=== PATIENT | female | born 1970 | race Caucasian/White ===

== ENCOUNTER 2019-07-29 12:20 | Emergency (ER) | payer MEDICAID ==
[~2019-07-29] VITALS: Ht 170.2 cm; Wt 99.8 kg
[2019-07-29 12:30] VITALS: BP 137/77
== END 2019-07-29 14:15 | disposition home or self-care (01) ==
LOC: ER 12:38
DX: F41.9 Anxiety disorder, unspecified (principal); I10 Essential (primary) hypertension; Z76.0 Encounter for issue of repeat prescription

== ENCOUNTER 2019-08-06 12:03 | Inpatient (IN) | payer MEDICAID ==
[~2019-08-06] VITALS: Ht 170.2 cm; Wt 98.8 kg
[2019-08-06] MEDS ORDERED: SODIUM CHLORIDE 0.9% 1,000 ML IV ONE ×2 (13:35)
[2019-08-06 13:43] LABS: Urine Bacteria NONE SEEN /hpf (None Seen); Urine Blood 2+ /uL (Negative); Urine Mucus FEW (None Seen); Urine Specific Gravity 1.026 (1.001-1.035); Urine WBC 37 /hpf (0 - 5)
[2019-08-06] MEDS ORDERED: KETOROLAC TROMETH 30 MG/ML 1ML VIAL IV ONE (13:45)
[2019-08-06 13:46] LABS: Basophils # (auto) 0 uL; Basophils % (auto) 0.2 % (0.0-2.0); Eosinophils # (auto) 0.3 uL; Eosinophils % (auto) 3.2 % (0.0-7.0); Hematocrit 42.3 % (36.0-46.0); Hemoglobin 14.1 g/dL (12.2-16.2); Lymphocytes # (auto) 2.5 uL; Lymphocytes % (auto) 24.6 % (10.0-50.0); Mean Corpuscular Hemoglobin 28.4 pg (28.0-32.0); Mean Corpuscular Hgb Conc. 33.5 g/dL (32.0-36.0); Mean Corpuscular Volume 84.9 fL (80.0-100.0); Monocytes # (auto) 0.6 uL; Monocytes % (auto) 6.4 % (0.0-12.0); Neutrophils # (auto) 6.6 uL; Neutrophils % (auto) 65.6 % (37.0-80.0); Nucleated Red Blood Cells % 0.1 %; Platelet Count (auto) 233 10^3/uL (140-450); Red Blood Cells 4.98 10^6/uL (4.0-5.20); Red Cell Distribution Width 14.8 % (11.8-14.3)
[2019-08-06 14:04] LABS: Albumin 3.6 g/dL (3.4-5.0); BUN/Creatinine Ratio 20.3; Calcium 8.2 mg/dL (8.5-10.1); Potassium 3.6 mmol/L (3.5-5.1)
[2019-08-06 14:09] LABS: Bilirubin, Total 0.3 mg/dL (0.2-1.0); Total Protein 7.3 g/dL (6.4-8.2)
[2019-08-06] MEDS ORDERED: LEVOFLOXACIN 500MG 100 ML IV ONE (14:15)
[2019-08-06] MEDS ORDERED: HYDROcodone-ACET 5/325MG TAB PO PRN (15:45)
[2019-08-06] MEDS ORDERED: NITROGLYCERIN 0.4 MG SL TAB SL PRN (15:45)
[2019-08-06] MEDS ORDERED: ACETAMINOPHEN 500 MG TAB PO PRN (15:45)
[2019-08-06] MEDS ORDERED: MORPHINE SULF INJ 2 MG/ML SYRINGE 1ML IV PRN ×2 (15:45)
[2019-08-06] MEDS ORDERED: ONDANSETRON HCL 4 MG/2 ML VIAL IV PRN (15:45)
[2019-08-06] MEDS ORDERED: amLODIPine BESYLATE 5 MG TAB PO ONE (16:15)
[2019-08-06] MEDS: BACLOFEN 10 MG TAB PO PRN (16:44)
[2019-08-06] MEDS: SODIUM CHLORIDE 0.9% 1,000 ML IV SCH (16:45)
--- NOTE | 2019-08-06 17:18 | NUR ---
Pt. Arrived to Unit Patient arrived to floor. Patient denies any pain, sob, or distress at this time.
[2019-08-06] MEDS: hydrALAZINE HCL 20 MG/ML VL IV SCH ×2 (17:43→23:52)
[2019-08-06 17:50] VITALS: BP 189/87
[2019-08-06] MEDS ORDERED: BACL10TA PO (17:59)
[2019-08-06] MEDS ORDERED: NIFE30TA76 PO (17:59)
[2019-08-06] MEDS ORDERED: METH250T21 PO (17:59)
[2019-08-06] MEDS ORDERED: CITA10TA59 PO (17:59)
[2019-08-06 18:13] VITALS: BP 155/85
--- NOTE | 2019-08-06 19:00 | NUR ---
Opening Shift Note Assumed care of patient, awake and alert. No S/S of distress/SOB or pain. Instructed on POC and to call for assist PRN, will continue to monitor for changes Q1hr and PRN.
--- NOTE | 2019-08-06 19:30 | NUR ---
Closing note Endorsed care to Heather, No distress noted at this time.
[2019-08-06 20:00] VITALS: BP 150/77
[2019-08-06] MEDS: KETOROLAC TROMETH 30 MG/ML 1ML VIAL IV PRN (20:55)
[2019-08-06 22:00] VITALS: BP 150/77
[2019-08-07] VITALS (7 sets, daily range): BP systolic 144–152; BP diastolic 82–97
[2019-08-07] MEDS: SODIUM CHLORIDE 0.9% 1,000 ML IV SCH ×3 (00:30→14:19)
[2019-08-07] MEDS: BACLOFEN 10 MG TAB PO PRN ×3 (03:45→21:33)
[2019-08-07] MEDS: KETOROLAC TROMETH 30 MG/ML 1ML VIAL IV PRN (03:51)
[2019-08-07] MEDS: hydrALAZINE HCL 20 MG/ML VL IV SCH ×2 (05:36→12:42)
--- NOTE | 2019-08-07 07:10 | NUR ---
Opening Shift Note Assumed care of patient, awake and alert laying in bed. No S/S of distress/SOB or pain. Instructed on POC and to call for assist PRN, bed in lowest and locked position and call light within reach. Will continue to monitor for changes Q1hr and PRN.
--- NOTE | 2019-08-07 07:20 | NUR ---
Report given to fannie rn. patient reports no pain or sob
[2019-08-07] MEDS: FAMOTIDINE 20 MG TAB PO SCH (09:37)
[2019-08-07] MEDS: amLODIPine BESYLATE 5 MG TAB PO SCH (09:37)
[2019-08-07] MEDS: cefTRIAXone 1GM/50ML D5W 50 ML IV SCH (09:38)
[2019-08-07] MEDS ORDERED: CITALOPRAM HYDROBR 20 MG TAB PO SCH (10:00)
[2019-08-07] MEDS: OXYCODONE W/ ACETAMINOPHEN 5/325MG TABLET PO PRN ×2 (10:30→21:33)
[2019-08-07] MEDS ORDERED: NIFEdipine ER 30 MG TAB PO ONE (11:30)
--- NOTE | 2019-08-07 13:10 | NUR ---
Dr. Knox bedside with patient discussing plan of care.
--- NOTE | 2019-08-07 19:45 | NUR ---
Opening Shift Note Received report from Alexandrea GUILLAUME. Assumed care of patient, awake and alert. No S/S of distress/SOB, complaints of mild headache. Instructed on POC and to call for assist PRN, will continue to monitor for changes Q1hr and PRN.
[2019-08-07] MEDS: METHYLDOPA 250 MG TAB PO SCH (21:33)
[2019-08-08 05:05] VITALS: BP 119/76
--- NOTE | 2019-08-08 07:25 | NUR ---
Opening Shift Note Assumed care of patient, laying in bed resting. No S/S of distress/SOB or pain. Instructed on POC and to call for assist PRN, call light within reach and bed in locked and lowest position. Will continue to monitor for changes Q1hr and PRN.
[2019-08-08 08:49] VITALS: BP 135/81
[2019-08-08] MEDS: cefTRIAXone 1GM/50ML D5W 50 ML IV SCH (09:28)
[2019-08-08] MEDS: FAMOTIDINE 20 MG TAB PO SCH (09:28)
[2019-08-08] MEDS: amLODIPine BESYLATE 5 MG TAB PO SCH (09:30)
[2019-08-08] MEDS: METHYLDOPA 250 MG TAB PO SCH (09:30)
[2019-08-08] MEDS ORDERED: NIFEdipine ER 30 MG TAB PO SCH (10:00)
[2019-08-08] MEDS ORDERED: CIPR-173 PO (11:47)
[2019-08-08 13:00] VITALS: BP 143/78
--- NOTE | 2019-08-08 14:02 | NUR ---
Discharge instructions given as ordered. Encourage to follow up with PMD as instructed. All questions and concerns addressed. Patient verbalized understanding. Medication reconciliation form completed and copy given to patient. Patient refused needed vaccines. IV removed with catheter intact and pressure dressing applied.
--- NOTE | 2019-08-08 14:02 | NUR ---
Patient taken to vehicle via wheelchair with all personal belongings, accompanied by staff and . No distress noted at time of departure.
[2019-08-08] MEDS ORDERED: CITALOPRAM HYDROBR 20 MG TAB PO SCH (22:00)
== END 2019-08-08 14:02 | disposition home or self-care (01) | DRG 465 ==
LOC: ER 12:03 → OVERFLOW 12:04 → CENTRAL 17:20
PROVIDERS: ADMIT Nurse Practitioner Acute Care; ATTEND Internal Medicine
DX: N20.0 Calculus of kidney (principal); N30.01 Acute cystitis with hematuria; E66.9 Obesity, unspecified; F32.9 Major depressive disorder, single episode, unspecified; G89.29 Other chronic pain; I10 Essential (primary) hypertension; K57.90 Diverticulosis of intestine, part unspecified, without perforation or abscess without bleeding; Z87.442 Personal history of urinary calculi; F41.9 Anxiety disorder, unspecified; Z68.34 Body mass index [BMI] 34.0-34.9, adult; Z88.0 Allergy status to penicillin; Z90.49 Acquired absence of other specified parts of digestive tract
CPT/HCPCS: 36415; 74176; 80053; 81001; 81025; 82150; 83690; 85025; 87086; 93005; 96365; 96375; G0378; J0696; J1885; J1956

== ENCOUNTER 2020-09-02 13:25 | Emergency (ER) | payer MEDICAID ==
[~2020-09-02] VITALS: Ht 170.2 cm; Wt 99.8 kg
[~2020-09-02 13:25] MED LIST: BACL10TA PO; CIPR-173 PO; CITA10TA59 PO; METH250T21 PO; NIFE1TAB31 PO
[2020-09-02 13:45] VITALS: BP 158/85
== END 2020-09-02 16:36 | disposition left against medical advice (07) ==
LOC: ER 13:25
DX: U07.1 COVID-19 (principal); F41.9 Anxiety disorder, unspecified; I10 Essential (primary) hypertension; Z87.442 Personal history of urinary calculi; Z90.49 Acquired absence of other specified parts of digestive tract; Z98.890 Other specified postprocedural states